=== PATIENT | male | born 1990 | race Caucasian/White ===

== ENCOUNTER 2021-02-01 05:46 | Emergency (ER) | payer MEDICAID ==
[~2021-02-01] VITALS: Ht 182.9 cm; Wt 68.2 kg
[2021-02-01] MEDS ORDERED: ALBU8HFA PO (08:29)
[2021-02-01] MEDS ORDERED: BENZ-16 PO (08:29)
[2021-02-01 09:33] VITALS: BP 120/76
--- NOTE | 2021-02-01 09:33 | NUR ---
COVID TEST POSITIVE. CALLED PT TO GIVE RESULTS
--- NOTE | 2021-02-01 09:37 | NUR ---
NUMBER PROVIDED BY PT WAS A NONE WORKING NUMBER. UNABLE TO REPORT RESULTS.
== END 2021-02-01 09:36 | disposition home or self-care (01) ==
LOC: ER 05:47
DX: U07.1 COVID-19 (principal); R50.9 Fever, unspecified; R05 Cough; R43.8 Other disturbances of smell and taste; Z79.899 Other long term (current) drug therapy
CPT/HCPCS: 87635; 99283; C9803